=== PATIENT | female | born 1970 | race Caucasian/White ===

== ENCOUNTER 2022-05-03 10:48 | Emergency (ER) | payer OTHER, SELFPAY ==
[2022-05-03 10:54] VITALS: BP 128/92; PULSE 114; RESP 20; TEMP 37.4; O2SAT 98
--- NOTE | 2022-05-03 13:24 | ED.URI ---
HPI - URI/Sore Throat General Chief Complaint: Upper Respiratory Infection Stated Complaint: head congestion Time Seen by Provider: 05/03/22 13:20 Source: patient, RN notes reviewed and old records reviewed Mode of arrival: ambulatory Limitations: no limitations History of Present Illness HPI Narrative: 52-year-old female who presents to [facility] with complaints headache, chills,head congestion, cough and body aches for the past 4 days, Patient reports that she has been taking severe cold and flu medication and also DayQuil, reports fever of 101F last night. Patient reports that she has had her COVID vaccinations and Booster but has not had flu shot. Patient MD elicited complaint: cough and sore throat Pertinent past history: immunosuppression Onset (ago): day(s) (4) Able to tolerate fluids by mouth: Yes Treatments prior to arrival: acetaminophen, cold medicine and other Related Data Home Medications Medication Instructions Recorded Confirmed eplerenone 25 mg tablet mg 05/03/22 folic acid 1 mg tablet 05/03/22 hydroxychloroquine 200 mg tablet mg PO 05/03/22 lorazepam 0.5 mg tablet mg 05/03/22 methotrexate sodium 2.5 mg tablet mg 05/03/22 sertraline 100 mg tablet mg 05/03/22 valacyclovir 500 mg tablet mg 05/03/22 Allergies Allergy/AdvReac Type Severity Reaction Status Date / Time No Known Allergies Allergy Verified 05/03/22 10:55 Review of Systems Review of Systems: CONSTITUTIONAL: reports malaise, chills, sweats, or fever. EYES: Denies visual changes, redness, or discharge. ENT: Reports rhinorrhea, congestion, sinus pain,no otalgia some sore throat. CARDIOVASCULAR: Denies chest pain, palpitations, or edema. RESPIRATORY: Reports cough.? Denies dyspnea. GASTROINTESTINAL: Denies abdominal pain, nausea, vomiting, diarrhea SKIN: Denies rash or itching. MUSCULOSKELETAL: reports myalgia. NEUROLOGIC: reports headache. All systems reviewed & are unremarkable except as noted in HPI and below PMFSH Past Medical History Medical History (Updated 05/10/22 @ 20:11 by Nuris Hudson NP) Anxiety Arthritis on methotrexate and hydroxychloroquine Comments At time of signature, agree with nursing past medical, surgical, social and family history. There is no relevant family history pertinent to the presenting complaint Exam Narrative: GENERAL: Well-appearing, well-nourished, and in no acute distress. HEAD: Normocephalic EYES: PERRLA, conjunctivae clear ENT: Nares clear, turbinates edematous and erythematous, clear discharge. Mucous membranes moist. TM pearly to with dull light reflex bilaterally; no tragal tenderness. Oropharynx erythematous without lesions. Tonsils not enlarged and without exudate, no drooling, no hoarseness, no trismus, uvula midline, reports some sore throat pain NECK: Supple. No lymphadenopathy CHEST: Clear to auscultation, breath sounds equal. No wheezing, rhonchi, rales, or stridor. No respiratory distress, speaks in full sentences.cough SAO2 98% on room air HEART: Regular rate and rhythm. No murmur heard. SKIN: Warm, dry, no rash. NEURO: Alert and oriented x3. PSYCH: Normal mood and affect Course Course Emergency Course: Patient is aware of diagnosis, understands and agrees to treatment plan.? Anticipatory guidance given.? Patient agrees to follow-up as directed and is aware of reasons to seek care at the emergency department. Portions of this record may have been created with voice recognition software Level of Care: Express Care Visit Vital Signs Vital signs: Vital Signs Temperature 37.4 C 05/03/22 10:54 Pulse Rate 114 H 05/03/22 10:54 Respiratory Rate 20 05/03/22 10:54 Blood Pressure 128/92 H 05/03/22 10:54 Pulse Oximetry 98 05/03/22 10:54 Oxygen Delivery Room Air 05/03/22 10:54 Temperature 37.4 C 05/03/22 10:54 Pulse Rate 114 H 05/03/22 10:54 Respiratory Rate 20 05/03/22 10:54 Blood Pressure 128/92 H 04/09
== END 2022-05-03 13:55 | disposition home or self-care (01) ==
PROVIDERS: Emergency Provider Registered Nurse; PCP Nurse Practitioner Family
DX: J02.9 Acute pharyngitis, unspecified (principal)
CPT/HCPCS: 87804; 99213; G0463